=== PATIENT | female | born 1980 | race Caucasian/White ===

== ENCOUNTER 2021-09-06 11:07 | Emergency (ER) | payer OTHER ==
[~2021-09-06] VITALS: Ht 152.4 cm; Wt 57.0 kg
--- NOTE | 2021-09-06 11:29 | PHYS DOC ---
General Adult EDM: Chief Complaint: CHEST PAIN HPI: HPI: Patient is a 41-year-old female who presents with chest pain, cough, shortness of breath. Patient states that on Tuesday she started having a sore throat and fever. Patient recently traveled Tuesday an airplane. Patient tested positive for COVID on Tuesday. Patient reports that chest pain has become increasingly worse and woke her up out of her sleep on Tuesday. Pain is worse with laying down. Patient's been taking ibuprofen which is helped with symptoms. Patient denies history of DVT or PE. Patient has history of Adrian's. Review of Systems: Review of Systems: ROS At least 10 ROS systems have been reviewed and are negative except as documented in the HPI. General: Negative except as outlined in HPI above. Skin: Negative except as outlined in HPI above. HEENT: Negative except as outlined in HPI above. Neck: Negative except as outlined in HPI above. Respiratory: Negative except as outlined in HPI above.. Cardiovascular: Negative except as outlined in HPI above. Abdomen: Negative except as outlined in HPI above. : Negative except as outlined in HPI above. Back/MSK: Negative except as outlined in HPI above. Neuro: Negative except as outlined in HPI above. Psych: Negative except as outlined in HPI above. Physical Exam: PE: Constitutional: Well developed, well nourished, no acute distress, non-toxic appearance. [] HENT: Normocephalic, atraumatic, bilateral external ears normal, oropharynx moist, no oral exudates, nose normal. [] Eyes: PERRLA, EOMI, conjunctiva normal, no discharge. [] Neck: Normal range of motion, no tenderness, supple, no stridor. [] Cardiovascular:Heart rate regular rhythm, no murmur [] Lungs & Thorax: Bilateral breath sounds clear to auscultation, no wheezing Abdomen: Bowel sounds normal, soft, no tenderness, no masses, no pulsatile masses. [] Skin: Warm, dry, no erythema, no rash. [] Back: No tenderness, no CVA tenderness. [] Extremities: No tenderness, no cyanosis, no clubbing, ROM intact, no edema. [] Neurologic: Alert and oriented X 3, normal motor function, normal sensory function, no focal deficits noted. [] Psychologic: Affect normal, judgement normal, mood normal. [] EKG: EKG: [] Sinus rhythm. Heart rate [address] elevation or depression. Read by Dr. Holbrook. Radiology/Procedures: Radiology/Procedures: []EXAMINATION: Chest radiograph. VIEWS: 1 COMPARISON: None INDICATION:41 years, Female, chest pain shortness of breath. FINDINGS: Normal cardiomediastinal silhouette. Focal airspace opacity in the right lung base. No pleural effusion or pneumothorax. No acute osseous process. IMPRESSION: Focal opacity in the right lung base, suspicious for pneumonia. Recommend short- term follow-up after treatment completion to ensure resolution and underlying pulmonary nodule. Electronically signed by: Ag Oliveira MD (09/06/2021 11:54 AM) [facility] Heart Score: C/O Chest Pain: Yes HEART Score for Chest Pain: HEART Score for Chest Pain Response (Comments) Value History Moderately Suspicious 1 ECG Normal 0 Age < 45 0 Risk Factors 1 or 2 Risk Factors 1 Troponin < Normal Limit 0 Total 2 Risk Factors: Risk Factors: DM, Current or recent (<one month) smoker, HTN, HLP, family history of CAD, obesity. Risk Scores: Score 0 - 3: 2.5% MACE over next 6 weeks - Discharge Home Score 4 - 6: 20.3% MACE over next 6 weeks - Admit for Clinical Observation Score 7 - 10: 72.7% MACE over next 6 weeks - Early Invasive Strategies Course & Med Decision Making: Course & Med Decision Making Pertinent Labs and Imaging studies reviewed. (See chart for details) 41-year-old all presents with chest pain, cough, shortness of breath. Patient tested positive for COVID on Tuesday. Patient recently traveled out of state and returned on Tuesday when symptoms started. Patient reports that she had been running fevers at the beginning of the week, but has not ran one recently. Patient's been taking ibuprofen which is helped with her symptoms. Patient denies needing anything while in the ER for pain. Pain is improved with sitting up. Pain is not reproducible. Work-up in ER consisted of CBC, CMP, troponin, D-dimer, chest x-ray. Patient satting 100% on room air. 81 bpm. Chest x-ray shows focal opacity in the right lung base, suspicious for pneumonia. Patient given dexamethasone. All other labs are unremarkable. Troponin is negative. Heart score of 2. D-dimer of 0.44. Wells score 1.5. PERC 0, no indication for CTA. Discussed all results with patient. Advised patient symptoms are most likely from pneumonia. Started patient on antibiotic to treat pneumonia. Advised patient to call her PCP make a follow-up appointment. Discussed return precautions in length with patient. Patient verbalizes understanding of discharge instructions. Patient is appreciative and okay with discharge plan. Dragon Disclaimer: Dragon Disclaimer: This electronic medical record was generated, in whole or in part, using a voice recognition dictation system. Departure Departure: Impression: Primary Impression: Cough Additional Impressions: Chest pain Qualified Codes: R07.9 - Chest pain, unspecified Pneumonia due to COVID-19 virus Disposition: HOME / SELF CARE / HOMELESS Condition: STABLE Patient Instructions: Pneumonia, Adult, [id number] Additional Instructions: You are seen in the emergency room for cough, chest pain. All of your labs are unremarkable. We performed a chest x-ray which showed some right lower lobe pneumonia. You were given steroids while in the emergency room and I am sending you home with an antibiotic. Make sure that you self quarantine due to your COVID test results on Tuesday. Take [id number] medications to help with your symptoms. Please return to the emergency room if you have worsening symptoms or concerns such as an increase in chest pain, shortness of breath, uncontrolled vomiting. Follow-up with your PCP. EMERGENCY DEPARTMENT GENERAL DISCHARGE INSTRUCTIONS Thank you for coming to [facility] (ED) today and trusting us with you care. We trust that you had a positivie experience in our Emergency Department. If you wish to speak to the department management, you may call the director at [phone]. YOUR FOLLOW UP INSTRUCTIONS ARE FOLLOWS: 1. Do you have a private Doctor? If you do not have a private doctor, please ask for a resource list of physicians or clinics that may be able to assist you with follow up care. 2. The Emergency Physician has interpreted your x-rays. The X-Ray specialist will also review them. If there is a change in the findings, you will be notified in 48 hours when at all possible. 3. A lab test or culture has been done, your results will be reviewed and you will be notified if you need a change in treatment. ADDITIONAL INSTRUCTIONS AND INFORMATION: 1. Your care today has been supervised by a physician who is specially trained in emergency care. Many problems require more than one evaluation for a complete diagnosis and treatment. We recommend that you schedule your follow up appointment as recommended to ensure complete treatment of you illness or injury. If you are unable to obtain follow up care and continue to have a problem, or if your condition worsens, we recommend that you return to the ED. 2. We are not able to safely determine your condition over the phone nor are we able to give sound medical advice over the phone. For these safety reasons, if you call for medical advice we will ask you to come to the ED for further evaluation. 3. If you have any questions regarding these discharge instructions please call the ED at [phone]. SAFETY INFORMATION: In the interest of safety, wellness, and injury prevention; we encourage you to wear your sealbelt, if you smoke; quite smoking, and we encourage family to use a protective helmet for bicycling and other sporting events that present an increased risk for head injury. IF YOUR SYMPTOMS WORSEN OR NEW SYMPTOMS DEVELOP, OR YOU HAVE CONCERNS ABOUT YOUR CONDITION; OR IF YOUR CONDITION WORSENS WHILE YOU ARE WAITING FOR YOUR FOLLOW UP APPOINTMENT; EITHER CONTACT YOUR PRIMARY CARE DOCTOR, THE PHYSICIAN WHOSE NAME AND NUMBER YOU WERE GIVEN, OR RETURN TO THE ED IMMEDIATELY. Scripts Azithromycin (AZITHROMYCIN TABLET) 250 Mg Tablet 1 PKG PO UD for pneumonia for 5 Days, #6 TAB 0 Refills 2 the first day followed by 1 for days 2-5 Prov: KANWAL BEDOYA APRN 09/06/21 KANWAL BEDOYA APRN September 06, 2021 11:29
[2021-09-06] MEDS ORDERED: ASPIRIN CHEWABLE 81 MG TABLET. PO ONE (11:30)
[2021-09-06] MEDS ORDERED: IV NORMAL SALINE 1,000ML 1,000 ML IV SCH (11:30)
[2021-09-06 11:52] LABS: BASO % 1 % (0-3); EOS # 0.1 x10^3/uL (0.0-0.7); EOS % 2 % (0-3); HEMOGLOBIN 13.9 g/dL (12.0-15.5); LYMPH # 1.4 x10^3/uL (1.0-4.8); LYMPH % 23 % (24-48); MEAN CORPUSCULAR HEMOGLOBIN 33 pg (25-35); MEAN CORPUSCULAR HGB CONC 34 g/dL (31-37); MEAN CORPUSCULAR VOLUME 97 fL (79-100); MONO # 0.6 x10^3/uL (0.0-1.1); MONO % 11 % (0-9); NEUT # 3.7 x10^3uL (1.8-7.7); NEUT % 63 % (31-73); PLATELET COUNT 232 x10^3/uL (140-400); RED BLOOD COUNT 4.21 x10^6/uL (3.50-5.40); RED CELL DISTRIBUTION WIDTH 13.1 % (11.5-14.5); WHITE BLOOD COUNT 5.9 x10^3/uL (4.0-11.0)
--- NOTE | 2021-09-06 11:56 | RAD ---
EXAMINATION: Chest radiograph. VIEWS: 1 COMPARISON: None INDICATION:41 years, Female, chest pain shortness of breath. FINDINGS: Normal cardiomediastinal silhouette. Focal airspace opacity in the right lung base. No pleural effusi on or pneumothorax. No acute osseous process. IMPRESSION: Focal opacity in the right lung base, suspicious for pneumonia. Recommend short-term follow-up after treatment completion to ensure resolution and underlying pulmonary nodule. Electronically signed by: Ag Oliveira MD (09/06/2021 11:54 AM) [facility]
[2021-09-06 11:57] LABS: CALCIUM 8.5 mg/dL (8.5-10.1); CREATININE 0.7 mg/dL (0.6-1.0); GFR 92.2; POTASSIUM 3.7 mmol/L (3.5-5.1)
[2021-09-06 12:04] LABS: ALBUMIN 3.7 g/dL (3.4-5.0); ALBUMIN/GLOBULIN RATIO 1.3 (1.0-1.7); TOTAL BILIRUBIN 0.3 mg/dL (0.2-1.0); TOTAL PROTEIN 6.6 g/dL (6.4-8.2)
[2021-09-06] MEDS ORDERED: DEXAMETHASONE SOD PHOS 10 MG/ML VIAL. IVP ONE (13:00)
[2021-09-06] MEDS ORDERED: IV NORMAL SALINE 1,000ML 1,000 ML IV ONE (13:00)
[2021-09-06] MEDS ORDERED: AZIT250T6 PO (13:49)
[2021-09-06 13:54] LABS: BACTERIA,URINE 0 /HPF (0-FEW); CLARITY,URINE CLEAR; COLOR,URINE YELLOW; GLUCOSE,URINE NEG (NEG); NITRITE,URINE NEG (NEG); RBC,URINE 0 /HPF (0-2); UROBILINOGEN,URINE 0.2 mg/dL (0.2 mg/dL); WBC,URINE 0 /HPF (0-4)
[2021-09-06 13:55] LABS: SQUAMOUS EPITHELIAL CELL,UR OCC /LPF
[2021-09-06 14:20] VITALS: BP 118/60
--- NOTE | 2021-09-07 06:05 | EKG ---
[address] [address] Test Date: 2021-09-06 Test Time: 11:24:54 Pat Name: ASH GUTIERREZ Department: Room: Gender: F Care Attendant: NAVEEN : 1980 Requested By: KANWAL BEDOYA Order Number: [id number] Reading MD: Measurements Intervals [place] Rate: 67 P: 33 CT: 140 QRS: 31 QRSD: 90 T: 12 QT: 378 QTc: 402 Interpretive Statements SINUS RHYTHM NORMAL ECG RI6.02 No previous ECG available for comparison
== END 2021-09-06 14:30 | disposition home or self-care (01) ==
LOC: ER 11:16
DX: U07.1 COVID-19 (principal); J12.82 Pneumonia due to coronavirus disease 2019
CPT/HCPCS: 36415; 71045; 80053; 81001; 81025; 83735; 84484; 85025; 85379; 85610; 85730; 87077; 87086; 93005; 96361; 96374; 99285; J1100; J7030